=== PATIENT | female | born 1970 | race Caucasian/White ===

== ENCOUNTER → 2019-10-12 | Outpatient (CLI) | payer OTHER ==
--- NOTE | 2019-10-19 12:14 | BMR ---
EXAMINATION TYPE: MR breast BILAT wo/w con DATE OF EXAM: 10/12/2019 COMPARISON: Outside bilateral 3-D breast mammogram May 17, 2019 BI-RADS 2 and older outside [facility]. Outside bilateral breast MRI September 14, 2017 HISTORY: family history malignant neoplasm breast, history of right breast benign biopsy in early 201 8 CONTRAST: Multiplanar, multisequence images of the breasts were acquired utilizing 6 mL intravenous Gadavist ga dolinium contrast. TECHNIQUE: A series of fat and water weighted images in the long and short axis views of both breasts are obtained in conjunction with dynamic contrast MRI with subtraction technique. Three-dimensional and additional postprocessing imaging is created on independent workstation and reviewed during offi cial interpretation of this study. FINDINGS: Heterogeneously dense fibroglandular tissue throughout both breasts is redemonstrated. No d istinct focal suspicious cystic lesions on T2-weighted images identified. Postcontrast images show ea rly moderate symmetric background enhancement. Delayed dynamic postcontrast images show no suspicious intramammary adenopathy. Regards to the right breast there is artifact posterior depth upper outer aspect from prior biopsy cl ip. No suspicious skin thickening. No pathologic enhancement. Chest wall is intact. No suspicious axi llary adenopathy. With regards to the left breast no concerning axillary adenopathy. No suspicious skin thickening. No pathologic enhancing masses noted. IMPRESSION: No MRI evidence for invasive malignancy in either breast. BI-RADS 2 benign findings left breast BI-RADS 2 benign findings right breast Recommendation: Return to routine follow-up, bilateral breast mammogram April 2020 to be back on annual schedule. ACR is of 2018 also advises annual MRI surveillance as precautionary measure for pa tients with significant family history of breast cancer and background dense breasts on mammogram.
== END | disposition home or self-care (01) ==
LOC: RADMRIMAIN 09:20
PROVIDERS: ATTEND Obstetrics & Gynecology Obstetrics
DX: Z12.31 Encounter for screening mammogram for malignant neoplasm of breast (principal); Z80.3 Family history of malignant neoplasm of breast
CPT/HCPCS: 77049; C8937; A9585

== ENCOUNTER → 2020-09-26 | Outpatient (CLI) | payer OTHER | END | disposition home or self-care (01) | LOC: LABWHC1 14:05 | PROVIDERS: ATTEND Family Medicine | DX: Z01.818 Encounter for other preprocedural examination (principal); Z20.822 Contact with and (suspected) exposure to COVID-19 | CPT/HCPCS: U0003; C9803 ==

== ENCOUNTER → 2021-02-11 | Outpatient (CLI) | payer OTHER ==
--- NOTE | 2021-02-11 11:00 | BMR ---
EXAMINATION TYPE: MR breast BILAT wo/w con DATE OF EXAM: 02/11/2021 COMPARISON: 10/20/2019, 05/17/2019 HISTORY: Family hx breast CA TECHNIQUE: A series of fat and water weighted images in the long and short axis views of both breasts are obtained in conjunction with dynamic contrast MRI with subtraction technique. The patient was i njected with 6 mL intravenous Gadavist gadolinium contrast. Three-dimensional and additional postpr ocessing imaging is created on independent workstation and reviewed during official interpretation of this study. FINDINGS: There is heterogeneously dense tissue bilaterally with moderate bilateral background parenchymal enha ncement. There is no MRI evidence for malignancy in either breast. There is a focus of susceptibility artifact in the posterior upper right breast, consistent with biopsy clip seen on prior mammogram. No definite lymphadenopathy is seen. IMPRESSION: No definite MRI evidence for malignancy. Patient is overdue for her bilateral mammogram and recent ma mmogram is necessary for complete evaluation of this MRI. BI-RADS 0, incomplete. Recommendation: Bilateral screening mammogram is recommended.
== END | disposition home or self-care (01) ==
LOC: RADMRIMAIN 09:17
PROVIDERS: ATTEND Obstetrics & Gynecology Obstetrics
DX: R92.2 Inconclusive mammogram (principal); Z80.3 Family history of malignant neoplasm of breast
CPT/HCPCS: 77049; C8937; A9585

== ENCOUNTER → 2021-08-08 | Outpatient (CLI) | payer OTHER ==
--- NOTE | 2021-08-08 12:14 | XR ---
EXAMINATION TYPE: XR chest 2V DATE OF EXAM: 08/08/2021 COMPARISON: NONE HISTORY: Asthma. TECHNIQUE: Frontal and lateral views of the chest are obtained. FINDINGS: There is no focal air space opacity, pleural effusion, or pneumothorax seen. The cardiac silhouette size is within normal limits. The osseous structures are intact. IMPRESSION: No acute cardiopulmonary process.
== END | disposition home or self-care (01) ==
LOC: RADXRMAIN 11:58
PROVIDERS: ATTEND Family Medicine
DX: J45.909 Unspecified asthma, uncomplicated (principal)
CPT/HCPCS: 71046

== ENCOUNTER → 2022-01-15 | Outpatient (CLI) | payer OTHER ==
[2022-01-15 23:20] LABS: Basophils # (A) 0.06 X 10*3/uL (0.00-0.10); Basophils % (A) 1.5 %; Eosinophils # (A) 0.22 X 10*3/uL (0.04-0.35); Eosinophils % (A) 5.6 %; HCT 40.8 % (37.2-46.3); Immature Grans, Automated 0 %; Lymphocytes # (A) 1.69 X 10*3/uL (0.90-5.00); Lymphocytes % (A) 43.3 %; MCH 29.7 pg (27.0-32.0); MCHC 31.9 g/dL (32.0-37.0); MCV 93.4 fL (80.0-97.0); Mean Platelet Volume 10.2 fL (9.5-12.2); Monocytes # (A) 0.32 X 10*3/uL (0.20-1.00); Monocytes % (A) 8.2 %; NRBC Per 100 WBC 0 /100 WBCS (0.0-0.0); Neutrophils # (A) 1.61 X 10*3/uL (1.80-7.70); Neutrophils % (A) 41.4 %; Platelet Count 276 X 10*3/uL (140-440); RBC 4.37 X 10*6/uL (4.10-5.20); RDW 11.4 % (11.5-14.5)
[2022-01-15 23:25] LABS: C Reactive Protein <0.30 mg/dL (0.00-0.80); Rheumatoid Factor, Qnt <10 IU/mL (0-15)
[2022-01-15 23:26] LABS: Uric Acid 4.5 mg/dL (2.9-7.7)
[2022-01-15 23:57] LABS: Erythrocyte Sedimentation Rate 8 mm/Hr (0-30)
[2022-01-17 11:39] LABS: HLA B27 NEGATIVE
== END | disposition home or self-care (01) ==
LOC: LABWHC1 17:10
PROVIDERS: ATTEND Orthopaedic Surgery
DX: M25.50 Pain in unspecified joint (principal)
CPT/HCPCS: 36415; 84550; 85025; 85652; 86038; 86140; 86431; 86812

== ENCOUNTER → 2022-01-26 | Outpatient (CLI) | payer OTHER ==
--- NOTE | 2022-01-27 06:41 | MR ---
EXAMINATION TYPE: MR knee RT wo con DATE OF EXAM: 01/26/2022 COMPARISON: None HISTORY: Rt knee pain x6 weeks Multiplanar multiecho imaging of the right knee with no contrast. There is mild knee joint effusion. The anterior and posterior cruciate ligaments are intact. There is knee joint effusion. The collateral ligaments are intact. The lateral meniscus appears intact. There is horizontal large tear through the posterior horn of the medial meniscus extending to the inferior surface. There is no evidence of focal bone destruction. No fracture seen. Patella is intact. There is small a bibi of 5 mm subchondral edema in the superior patella. IMPRESSION: There is a large horizontal tear of the posterior horn of the medial meniscus extending into the ante rior horn. Knee joint effusion. No evidence of ligamentous tear.
== END | disposition home or self-care (01) ==
LOC: RADMRIMAIN 20:05
PROVIDERS: ATTEND Orthopaedic Surgery
DX: M23.321 Other meniscus derangements, posterior horn of medial meniscus, right knee (principal)

== ENCOUNTER → 2022-06-29 | Outpatient (CLI) | payer OTHER ==
--- NOTE | 2022-06-29 12:29 | BMR ---
EXAMINATION TYPE: MR breast BILAT wo/w con DATE OF EXAM: 06/29/2022 COMPARISON: Prior MRI bilateral breasts October 12 2019 BI-RADS 2 and February 11, 2021 BI-RADS 2. Outsi de 3-D bilateral breast mammogram June 28, 2020 BI-RADS 2. HISTORY: Family hx malignant neoplasm breast TECHNIQUE: A series of fat and water weighted images in the long and short axis views of both breasts are obtained in conjunction with dynamic contrast MRI with subtraction technique. The patient was i njected with 6 mL intravenous Gadavist gadolinium contrast. Three-dimensional and additional postpr ocessing imaging is created on independent workstation and reviewed during official interpretation of this study. FINDINGS: Heterogeneously dense fibroglandular tissue throughout both breasts is redemonstrated. No d istinct focal suspicious cystic lesions or fluid collections on T2-weighted images identified. Benign -appearing bilateral axillary lymph nodes redemonstrated. No suspicious axillary adenopathy. Postcont rast images show fairly mild background enhancement. Delayed dynamic postcontrast images show no susp icious intramammary adenopathy. With regards to the right breast there is susceptibility artifact posterior depth upper outer aspect from prior biopsy clip redemonstrated. No suspicious skin thickening. No pathologic enhancement. Ches t wall is intact. With regards to the left breast chest wall is intact. No suspicious skin thickening. No pathologic en hancing masses or enhancement noted. IMPRESSION: No MRI evidence for invasive malignancy in either breast. BI-RADS 2 benign findings left breast BI-RADS 2 benign findings right breast Recommendation: Annual bilateral breast mammogram. Annual MRI surveillance in high risk patient.
== END | disposition home or self-care (01) ==
LOC: RADMRIMAIN 08:19
PROVIDERS: ATTEND Obstetrics & Gynecology Obstetrics
DX: Z80.3 Family history of malignant neoplasm of breast (principal)
CPT/HCPCS: 77049; A9585

== ENCOUNTER → 2022-08-18 | Outpatient (CLI) | payer OTHER ==
--- NOTE | 2022-08-18 17:47 | BD ---
EXAMINATION TYPE: Axial Bone Density DATE OF EXAM: 08/18/2022 COMPARISON: NONE CLINICAL HISTORY: 52 years year old Female. ICD-10 CODE: Z13.820 ENCOUNTER FOR SCREENING FOR OSTEOPO ROSIS Height: 5 FT 1/2 IN Weight: 132 FRAX RISK QUESTIONS: Alcohol (3 or more units per day): NO Family History (Parent hip fracture): NO Glucocorticoids (More than 3mos): NO (Ex: prednisone, prednisolone, methylprednisolone, dexamethasone, and hydrocortisone). History of Fracture in Adulthood: NO Secondary Osteoporosis: 1. Type 1 Diabetes: NO 2. Hyperthyroidism: NO 3. Menopause before 45: NO 4. Malnutrition: NO 5. Chronic liver disease: NO Rheumatoid Arthritis: NO Current Tobacco Use: NO RISK FACTORS HISTORY OF: Surgery to Spine/Hip(right/left)/Wrist (right/left): NO Family History of Osteoporosis: YES Active: YES Diet low in dairy products/other sources of calcium: NO Postmenopausal woman: YES Take estrogen and/or progesterone medications: NO Lost more than 2 inches in height since high school: NO Frequent falls: NO Poor Health: GOOD Hyperparathyroidism: NO Adrenal Insufficiency: NO MEDICATIONS: Additional Medications: MONTELUKAST, PREVA STATIN, INHALERS FOR ASTHMA NEEDED Additional History: EXAM MEASUREMENTS: Bone mineral densitometry was performed using the [employer] System. Bone mineral density as measured about the Lumbar spine is: ----- L1-L4(G/cm2): 0.887 T Score Values are as follows: ----- L1: -2.2 ----- L2: -2.5 ----- L3: -2.5 ----- L4: -2.6 ----- L1-L4: -2.4 BASELINE Bone mineral density about the R hip (g/cm2): 0.795 Bone mineral density about the L hip (g/cm2): 0.822 T Score values are as follows: -----R Neck: -1.7 -----L Neck: -1.6 -----R Total: -1.0 -----L Total: -0.9 BASELINE FRAX%s: The graph provided illustrates a 3.5 % chance for a major osteoporotic fx and a 0.4 % chance for the hips probability for fx in 10 years time. IMPRESSION: Osteoporosis (T Score less than -2.5). There is increased fracture risk and therapy is usually indicated based on age. Re-Screen 1-2 years. NOTE: T-SCORE=SD OF THE YOUNG ADULT MEAN.
== END | disposition home or self-care (01) ==
LOC: RADBDWWP 10:46
PROVIDERS: ATTEND Obstetrics & Gynecology Obstetrics
DX: Z13.820 Encounter for screening for osteoporosis (principal); M81.0 Age-related osteoporosis without current pathological fracture; Z78.0 Asymptomatic menopausal state
CPT/HCPCS: 77080

== ENCOUNTER → 2024-02-17 | Outpatient (CLI) | payer OTHER ==
--- NOTE | 2024-02-21 08:52 | MM ---
Reason for Exam: Screening (asymptomatic). Last mammogram was performed 1 year(s) and 6 month(s) ago. Patient History: Menarche at age 10. First Full-Term at age 31. Late child-bearing (after 30). Postmenopausal. Patient has history of breast feeding. 01/04/2018, MG stereo VAD BX RT on the Right side. Sister had breast cancer, age 45. Risk Values: Kathi 5 year model risk: 3.0%. NCI Lifetime model risk: 20.4%. Prior Study Comparison: 08/03/2017 Bilateral MG 3D screening mammo w/cad, Unknown. 05/17/2019 Bilateral MG 3D screening mammo w/cad, Unknown. 06/28/2020 Bilateral MG 3D screening mammo w/cad, Unknown. 07/29/2021 Bilateral MG 3D screening mammo w/cad, Unknown. 07/29/2022 Bilateral MG 3D diag mammo w/cad ABDULLAHI - 2, Unknown. Tissue Density: The breasts are extremely dense, which lowers the sensitivity of mammography. Findings: Analyzed By CAD. There is no suspicious group of microcalcifications or new suspicious mass in either breast. Previous biopsy marker in the right breast. Benign-appearing calcifications. Overall Assessment: Benign, BI-RAD 2 Management: Screening Mammogram of both breasts in 1 year. . Patient should continue monthly self-breast exams. A clinical breast exam by your physician is recommended on an annual basis. This exam should not preclude additional follow-up of suspicious palpable abnormalities. Note on Kathi scores and lifetime risk: 1. A Kathi score greater than 3% is considered moderate risk. If this is the case, consider specialist referral to assess eligibility for a risk reducing agent. 2. If overall lifetime risk for the development of breast cancer is 20% or higher, the patient may qualify for future screening with alternating mammogram and breast MRI. Electronically signed and approved by: Srinivasan Rizo M.D. Radiologis
== END | disposition home or self-care (01) ==
LOC: RADMAMWWP 13:43
PROVIDERS: ATTEND Specialist
DX: Z12.31 Encounter for screening mammogram for malignant neoplasm of breast (principal); Z78.0 Asymptomatic menopausal state; Z80.3 Family history of malignant neoplasm of breast
CPT/HCPCS: 77063; 77067

== ENCOUNTER 2024-06-13 09:07 | Day surgery (SDC) | payer OTHER ==
[2024-06-09 14:54] VITALS: BMI 25.1
[~2024-06-13 09:07] MED LIST: LACTATED RINGERS 1,000 ML IV SCH; LIDOCAINE 1% (10MG/ML) FOR IV START INTRADERMA PRN; ONDANSETRON 4 MG/2 ML VIAL IVP PRN
[2024-06-13 09:44] VITALS: RESP 16; TEMP 97.6
[2024-06-13] MEDS: IV FLUID CONTINUATION 1,000 ML IV ONE (09:51)
[2024-06-13] MEDS ORDERED: PROPOFOL 10 MG/ML 20 ML VIAL IV ONE (10:16)
--- NOTE | 2024-06-13 10:40 | P.PCN ---
Date of Procedure: 06/13/24 Procedure(s) Performed: BRIEF HISTORY: Patient is a 54-year-old pleasant female scheduled for an elective colonoscopy as a part of screening screening for colon cancer. PROCEDURE PERFORMED: Colonoscopy with snare polypectomy PREOPERATIVE DIAGNOSIS: Screening for colon cancer. IV sedation per Anesthesia. PROCEDURE: After informed consent was obtained, the patient, was brought into the endoscopy unit. IV sedation was administered by Anesthesia under continuous monitoring. Digital rectal examination was normal. Initially the Olympus CF-160 flexible video colonoscope was then inserted in the rectum, gradually advanced into the cecum without any difficulty. Careful examination was performed as the scope was gradually being withdrawn. Ileocecal valve and the appendiceal orifice were visualized and appeared normal. Prep was fair.. Mucosa of the cecum had a 1 cm polyp removed by snare polypectomy. Rest of the ascending colon, transverse colon, descending colon, appeared normal. In the sigmoid colon there was a 3 mm polyp removed by cold snare polypectomy. Scattered sigmoid diverticulosis seen. Rest of the sigmoid colon, and rectum appeared normal. Retroflexion was performed in the rectum and no lesions were seen. The patient tolerated the procedure well. IMPRESSION: 1 cm cecal polyp status post snare polypectomy 3 mm sigmoid colon polyp status post polypectomy Scattered sigmoid diverticulosis RECOMMENDATIONS: Findings of this examination were discussed with the patient as well as her family. She was advised to follow-up with the biopsy results. If the biopsy reveals adenoma she can have repeat colonoscopy in 3 years..
[2024-06-13 11:01] VITALS: BP 129/67; PULSE 62
== END 2024-06-13 11:24 | disposition home or self-care (01) ==
LOC: ORWHC2ENDO 09:07
PROVIDERS: ATTEND Internal Medicine Gastroenterology
CPT/HCPCS: 45385

== ENCOUNTER → 2024-08-21 | Outpatient (CLI) | payer OTHER ==
--- NOTE | 2024-08-23 22:06 | BD ---
EXAMINATION TYPE: Axial Bone Density DATE OF EXAM: 08/21/2024 CLINICAL HISTORY: 54 years old Female. ICD-10 CODE: M81.0 AGE RELATED OSTEOPOROSIS , Additional Hist ory: Height: 60.2 in Weight: 133 lbs MEDICATIONS: Osteoporosis Medications: alendronate Which medication: Other How Lon year + EXAM MEASUREMENTS: Bone mineral densitometry was performed using the [employer] System. Bone mineral density as measured about the Lumbar spine is: ----- L1-L4(G/cm2): 1.058 T Score Values are as follows: ----- L1: -1.4 ----- L2: -1.8 ----- L3: -0.9 ----- L4: -0.4 ----- L1-L4: -1.0 Z Score Values are as follows: ----- L1: -0.4 ----- L2: -0.8 ----- L3: 0.1 ----- L4: 0.5 ----- L1-L4: 0.0 Bone mineral density has: Increased 19.3% since study of: 08/18/2022 Bone mineral density about the R hip (g/cm2): 0.965 Bone mineral density about the L hip (g/cm2): 0.972 T Score values are as follows: -----R Neck: -1.3 -----L Neck: -1.4 -----R Total: -0.3 -----L Total: -0.3 Z Score values are as follows: -----R Neck: -0.1 -----L Neck: -0.3 -----R Total: 0.4 -----L Total: 0.5 Bone mineral density has: Increased 9.0% since study of: 08/18/2022 FRAX%s: The graph provided illustrates a 3.6% chance for a major osteoporotic fx and a 0.3% chance fo r the hips probability for fx in 10 years time. IMPRESSION: Osteopenia (T Score between -2.5 and -1). There is slightly increased risk of fracture and the patient may be considered for treatment. Re-Screen 2-5 years. NOTE: T-SCORE=SD OF THE YOUNG ADULT MEAN. [facility], , 08/23/2024 10:04 PM
== END | disposition home or self-care (01) ==
LOC: RADBDWWP 12:40
PROVIDERS: ATTEND Family Medicine
DX: M81.0 Age-related osteoporosis without current pathological fracture (principal); M85.89 Other specified disorders of bone density and structure, multiple sites
CPT/HCPCS: 77080